=== PATIENT | male | born 1970 | race Caucasian/White ===

== ENCOUNTER → 2017-09-16 | Emergency (ER) | payer OTHER ==
[~2017-09-16] VITALS: Ht 180.3 cm; Wt 113.4 kg
== END | disposition left against medical advice (07) ==
LOC: ER 19:20
DX: Z53.20 Procedure and treatment not carried out because of patient's decision for unspecified reasons (principal)

== ENCOUNTER → 2022-06-22 | Emergency (ER) | payer OTHER ==
[~2022-06-22] VITALS: Ht 177.8 cm; Wt 108.9 kg
[~2022-06-22] MED LIST: ORPHENADRINE C100 MG PO; XIGDUO XR 5 MG1 EAC1 PO
== END | disposition home or self-care (01) ==
LOC: ER 15:22
DX: M54.9 Dorsalgia, unspecified (principal)